=== PATIENT | male | born 1965 | race Caucasian/White ===

== ENCOUNTER 2016-06-02 23:34 | Emergency (ER) | payer OTHER ==
[~2016-06-02] VITALS: Ht 172.7 cm; Wt 83.9 kg
[~2016-06-02 23:34] MED LIST: AMIODARONE200 MG PO; ECOTRIN81 MG PO; GUAFENESIN400 MG PO; LEVAQUIN500 MG PO; LEXAPRO 10MG10 MG PO; LOSARTAN POTASS25 MG PO; MEDROL DOSEPAK1 PAC PO; NEXIUM 40MG40 MG PO; PRAVASTATIN SOD10 MG PO; TESSALON PERLE100 MG PO; TRILIPIX 135 M135 MG PO
--- NOTE | 2016-06-03 01:42 | ED AMS/SEIZURE/WEAK/DIZZY ---
History of Present Illness General Chief Complaint: Dizziness Stated Complaint: DIZZY X COUPLE DAYS PER PT Source: patient, family, old records Exam Limitations: no limitations Vital Signs & Intake/Output Vital Signs & Intake/Output Vital Signs Date Time Temp Pulse Resp B/P Pulse O2 O2 Flow FiO2 Ox Delivery Rate 06/03 0104 98.7 61 18 143/87 99 Room Air Allergies Coded Allergies: No Known Allergies (06/13/15) Reconcile Medications Amiodarone Hydrochloride (Amiodarone) 200 MG TAB 1 TAB PO QAM HEART (Reported ) Amiodarone Hydrochloride (Amiodarone) 200 MG TAB 0.5 TAB PO QPM HEART ( Reported) Aspirin (Ecotrin) 81 MG ECT 1 TAB PO DAILY HEART/BLOOD (Reported) Benzonatate (Tessalon Perle) 100 MG SGL 1 CAP PO TID COUGH Escitalopram Oxalate (Lexapro 10MG) (Unknown Strength) TAB (Unknown Dose) PO DAILY MENTAL HEALTH (Reported) Esomeprazole (Nexium) 40 MG CAP 1 CAP PO PRN GI (Reported) Fenofibric Acid (Trilipix 135 MG CAP) 135 MG CAP 1 CAP PO DAILY CHOLESTEROL ( Reported) Guaifenesin (Guafenesin) 400 MG TAB 1 TAB PO TID PRN COUGH Levofloxacin (Levaquin) 500 MG TAB 1 TAB PO DAILY PNA Losartan Potassium (Unknown Strength) TAB (Unknown Dose) PO DAILY BP ( Reported) Meclizine HCl 25 MG TABLET 1-2 TAB PO TIDPRN PRN DIZZINESS Methylprednisolone. (Medrol) 1 PAC PAC 1 PAC PO AD INFLAMMATION Pravastatin (Pravastatin Sodium) (Unknown Strength) TAB (Unknown Dose) PO QPM CHOLESTEROL (Reported) Triage Note: DIZZINESS FOR LAST FEW DAYS, ON AND OFF. PT REPORTS NO N/V, IS ABLE TO EAT. Triage Nurses Notes Reviewed? yes HPI: Patient presents with feeling like he is been buzzed for the past few days. Patient states he has not drank at all. Patient just feels unsteady on his feet. These episodes are intermittent however last a number of hours before called way. He occasionally gets nauseous during these episodes but there is been no vomiting. There is no tendinitis. There is no blurry vision. He has no weakness or numbness. Has no difficulty speaking. He has no blurry vision. Past History Travel History Traveled to [place] past 21 day No Medical History Any Pertinent Medical History? see below for history Neurological: NONE EENT: NONE Cardiovascular: OPEN HEART DEFIB Respiratory: COPD Gastrointestinal: NONE Hepatic: NONE Renal: NONE Musculoskeletal: NONE Psychiatric: NONE Endocrine: IMMUNE DEF Tetanus Vaccine: Surgical History Surgical History: CABG, PACER/DEFIB Psychosocial History What is your primary language Frisian Tobacco Use: Quit >30 days ago ETOH Use: denies use Illicit Drug Use: denies illicit drug use Family History Hx Contributory? No Review of Systems Review of Systems Constitutional: Reports: no symptoms. EENTM: Reports: no symptoms. Respiratory: Reports: no symptoms. Cardiovascular: Reports: no symptoms. GI: Reports: see HPI, nausea. Genitourinary: Reports: no symptoms. Musculoskeletal: Reports: no symptoms. Skin: Reports: no symptoms. Neurological/Psychological: Reports: see HPI. Hematologic/Endocrine: Reports: no symptoms. Immunologic/Allergic: Reports: no symptoms. All Other Systems: Reviewed and Negative Physical Exam Physical Exam General Appearance: well developed/nourished, alert, awake, mild distress Head: atraumatic Eyes: Bilateral: PERRL, EOMI. Ears, Nose, Throat: normal pharynx, normal ENT inspection Neck: normal inspection, supple, full range of motion Respiratory: normal breath sounds, chest non-tender, no respiratory distress, lungs clear Cardiovascular: regular rate/rhythm, normal peripheral pulses Gastrointestinal: normal bowel sounds, soft, non-tender, no organomegaly Back: normal inspection, normal range of motion Extremities: normal range of motion Neurologic/Psych: no motor/sensory deficits, awake, alert, oriented x 3, normal gait, normal mood/affect Skin: intact, normal color, warm/dry Lymphatic: no anterior cervical tramaine Core Measures ACS in differential dx? Yes ASA ordered for poss ACS? No-ACS ruled out CVA/TIA Diagnosis: No Severe Sepsis Present: No Septic Shock Present: No Progress Differential Diagnosis: arrythmia, alcohol intoxication, anemia, benign positional vertigo, drug intoxication, electrolyte imbalance Plan of Care: Orders Procedure Date/time Status TROPONIN LEVEL 06/03 141 Complete COMPREHENSIVE METABOLIC PANEL 06/03 141 Complete CBC WITHOUT DIFFERENTIAL 06/03 141 Complete EKG 06/03 141 Active Laboratory Tests 06/03/16 0152: Anion Gap 10, Estimated GFR > 60, BUN/Creatinine Ratio 24.0, Glucose 82, Calcium 10.1, Total Bilirubin 0.6, AST 31, ALT 37, Alkaline Phosphatase 81, Troponin I < 0.01, Total Protein 7.5, Albumin 4.2, Globulin 3.3, Albumin/Globulin Ratio 1.3, CBC w Diff NO MAN DIFF REQ, RBC 4.87, MCV 86.1, MCH 30.2, RDW 12.6, MPV 8.5, Gran % 51.9, Lymphocytes % 33.4, Monocytes % 8.5, Eosinophils % 5.5 H, Basophils % 0.7, Absolute Granulocytes 3.5, Absolute Lymphocytes 2.2, Absolute Monocytes 0.6, Absolute Eosinophils 0.4, Absolute Basophils 0, PUBS MCHC 35.1 Initial ED EKG: pacemaker rhythm Prior EKG: unchanged Comments: Patient is walking without difficulty in the emergency department despite feeling that he has an unsteady gait. His neurological exam is negative. He has sensation intact throughout. His motor strength is normal. Has normal finger to nose. His reflexes are 2+. He has no neurological findings at this time. Departure Departure Disposition: HOME OR SELF CARE Condition: Stable Clinical Impression Primary Impression: Vertigo Referrals: NANDINI DILLON,SHERRELL Crawford UNKNOWN (PCP/Family) Additional Instructions: TAKE ANTIVERT NEEDED RETURN IF SYMNPTOMS WORSEN OR NEEDED Departure Forms: Customer Survey General Discharge Information Prescriptions: Current Visit Scripts Meclizine HCl 1-2 TAB PO TIDPRN PRN DIZZINESS #30 TAB
[2016-06-03 02:08] LABS: ABSOLUTE BASOPHIL COUNT 0 /CUMM (0.0-0.2); ABSOLUTE EOSINOPHIL COUNT 0.4 /CUMM (0.0-0.7); ABSOLUTE GRANULOCYTE CT 3.5 /CUMM (1.4-6.5); ABSOLUTE LYMPH COUNT 2.2 /CUMM (1.2-3.4); ABSOLUTE MONOCYTE COUNT 0.6 /CUMM (0.10-0.60); BASOPHIL % 0.7 % (0.0-2.0); EOSINOPHIL % 5.5 % (0-5); GRANULOCYTE % 51.9 % (42.2-75.2); MEAN CORPUSCULAR HGB 30.2 PG (27.0-31.0); MEAN CORPUSCULAR HGB CONC 35.1 G/DL (33.0-37.0); MEAN CORPUSCULAR VOLUME 86.1 FL (80.0-94.0); MEAN PLATELET VOLUME 8.5 FL (7.4-10.4); PLATELET COUNT 313 /CUMM (130-400); RBC DISTRIBUTION WIDTH 12.6 % (11.5-14.5); RED BLOOD CELL CT 4.87 /CUMM (4.70-6.10); WHITE BLOOD CELL COUNT 6.7 /CUMM (4.8-10.8)
[2016-06-03 03:00] VITALS: BP 138/86
[2016-06-03] MEDS ORDERED: MECLIZINE HCL25 MG PO (03:12)
== END 2016-06-03 04:08 ==
LOC: ERH 23:34
PROVIDERS: Emergency Medicine
DX: R42 Dizziness and giddiness (principal)
CPT/HCPCS: 93005; 93010

== ENCOUNTER 2016-06-22 22:21 | Emergency (ER) | payer OTHER ==
[~2016-06-22 22:21] MED LIST changes: +MECLIZINE HCL25 MG PO
== END 2016-06-22 22:45 | disposition admitted as inpatient to this hospital (09) ==
LOC: ERH 22:21
DX: R42 Dizziness and giddiness (principal)